=== PATIENT | female | born 1935 | race Caucasian/White ===

== ENCOUNTER 2020-09-24 12:10 | Day surgery (SDC) | payer MEDICARE ==
[~2020-09-24] VITALS: Ht 149.9 cm; Wt 85.8 kg
[~2020-09-24 12:10] MED LIST: ALBU90OI INH; ALBU90OI6 INH; CLON.2 PO; DILT30 PO; DOXA1 PO; FLUSAL2505 INH; Furosemide20 MG PO; GABA300 PO; HYDMOR2 PO; IBUP600 PO; LEVSOD50 PO; LEVSOD75 PO; LISI20 PO; MONT10T PO; OMEP20ER PO; ONDA4ODT MM; Omeprazole20 M1 PO; PROAIR RESPICL90 MCG PO
[2020-09-25 05:03] LABS: BASOPHILS ABSOLUTE AUTO 0.02 K/mm3 (0.00-0.23); BASOPHILS PERCENT AUTO 0 % (0-2); EOSINOPHILS PERCENT AUTO 0 % (0-6); Hemoglobin 11.2 g/dL (11.5-16.0); IMMATURE GRAN ABSOLUTE AUTO 0.05 K/mm3 (0.00-0.10); IMMATURE GRAN PERCENT AUTO 0 % (0-1); LYMPHOCYTES ABSOLUTE AUTO 1.21 K/mm3 (0.84-5.20); LYMPHOCYTES PERCENT AUTO 9 % (21-46); MONOCYTES ABSOLUTE AUTO 0.43 K/mm3 (0.16-1.47); MONOCYTES PERCENT AUTO 3 % (4-13); Mean Corpuscular HGB 28.9 pg (26.0-34.0); Mean Corpuscular Volume 90 fL (80-100); Mean Platelet Volume 10.4 fL (9.1-12.4); NEUTROPHILS ABSOLUTE AUTO 11.83 K/mm3 (1.96-9.15); NEUTROPHILS PERCENT AUTO 87 % (41-73); Platelet Count 274 K/mm3 (150-400); RDW Coefficient Variation 13.4 % (11.7-14.2); RDW Standard Deviation 44.4 fL (35.1-46.3); Red Blood Cell Count 3.87 M/mm3 (3.80-5.20); White Blood Cell Count 13.54 K/mm3 (4.00-11.30)
--- NOTE | 2020-09-25 05:09 | NUR ---
SHIFT SUMMARY POD 1 RT TKA [id number], PT HAS BEEN PAINFUL DURING SHIFT, PO DILAUDID GIVEN ALONG WITH SCHEDULED. PAIN IMPROVING DURING SHIFT. PT ABLE TO TRANSFER TO [facility] WITH LESS ASSISSTANCE EACH TIME SHE GETS UP. DENIES NAUSEA DURING SHIFT. TOLERATING PO WELL, STATES APPETITE IS RETURNING. MJ WRAP CDI AND POLAR ANUEL ON. PLAN IS TO HAVE PT WORK WITH THERAPY AND DISCHARGE DURING THE DAY.
[2020-09-25 05:39] LABS: Anion Gap 7 mmol/L (6-16); Blood Urea Nitrogen 20 mg/dL (8-24); Bun/Creatinine Ratio 30.1 (12.0-20.0); CO2, Blood 26 mmol/L (21-32); Calcium, Blood 8.6 mg/dL (8.5-10.1); Chloride, Blood 103 mmol/L (98-108); Creatinine, Blood 0.66 mg/dL (0.40-1.00); Glomerular Filtration Rate >60 (60-); Glucose, Blood 176 mg/dL (70-99); Magnesium, Blood 1.9 mg/dL (1.6-2.4); Sodium, Blood 136 mmol/L (136-145)
[2020-09-25] MEDS ORDERED: ENOX40I SC ×2 (12:44)
[2020-09-25] MEDS ORDERED: ASPI81CH PO ×2 (12:45)
[2020-09-25] MEDS ORDERED: HYDMOR2 PO ×2 (12:46)
[2020-09-25] MEDS ORDERED: AMOCLA875 PO ×2 (12:48)
--- NOTE | 2020-09-25 14:19 | NUR ---
09/25/20 1419 Mercedes Barrios VERIFICATIONS: EDIT CHART.
--- NOTE | 2020-09-25 14:55 | NUR ---
PATIENT D/C'D HOME WITH DAUGHTER AT THIS TIME. PATIENT STATES PAIN CONTROLLED WITH PO PAIN MED. TOLERATING PO. VOIDING. PATIENT STATES UNDERSTANDING OF MEDS, ACTIVITY, WOUND CARE, OP PT, F/U APPT, ETC. NO ACUTE CHANGES OR C/O.
--- NOTE | 2020-09-25 16:12 | NUR ---
VSS. TOLERATING PO. DENIES PAIN. VISITING WITH DAUGHTER. CONT TO MONITOR.
[2020-09-26] MEDS ORDERED: HYDMOR2 PO (09:28)
== END 2020-09-25 14:54 | disposition home or self-care (01) ==
LOC: ORSCMMR 12:10 → SURS 17:39 → ORSCMMR 09-25 14:54
PROVIDERS: Orthopaedic Surgery
PROC: 0SRC0J9 Replacement of Right Knee Joint with Synthetic Substitute, Cemented, Open Approach (ICD-10-PCS; principal; 2020-09-24 14:30)
PROC: 8E0YXBZ Computer Assisted Procedure of Lower Extremity (ICD-10-PCS; principal; 2020-09-24 14:30)
DX: M17.11 Unilateral primary osteoarthritis, right knee (principal); I10 Essential (primary) hypertension; J45.909 Unspecified asthma, uncomplicated; K21.9 Gastro-esophageal reflux disease without esophagitis; E03.9 Hypothyroidism, unspecified; E11.9 Type 2 diabetes mellitus without complications; E78.00 Pure hypercholesterolemia, unspecified; E66.01 Morbid (severe) obesity due to excess calories; Z68.38 Body mass index [BMI] 38.0-38.9, adult; Z79.84 Long term (current) use of oral hypoglycemic drugs; Z79.899 Other long term (current) drug therapy
CPT/HCPCS: 36415; 73560-RT; 80048; 83735; 85025; 88300; 97110; 97116; 97162; 97530; A9270; C1713; C1776; J0171; J0360; J0690; J0735; J1170; J1650; J1885; J2250; J2550; J2704; J2795; J3010; J3370; J7120

== ENCOUNTER 2020-09-26 06:51 | Emergency (ER) | payer MEDICARE ==
[~2020-09-26] VITALS: Ht 149.9 cm; Wt 83.9 kg
[~2020-09-26 06:51] MED LIST changes: +AMOCLA875 PO; +ASPI81CH PO; +ENOX40I SC
[2020-09-26] MEDS ORDERED: HYDMOR2 PO (09:28)
[2020-09-26 10:25] LABS: BASOPHILS ABSOLUTE AUTO 0.03 K/mm3 (0.00-0.23); BASOPHILS PERCENT AUTO 0 % (0-2); EOSINOPHILS ABSOLUTE AUTO 0.01 K/mm3 (0.00-0.68); EOSINOPHILS PERCENT AUTO 0 % (0-6); Hematocrit 34.3 % (33.0-51.0); Hemoglobin 11.1 g/dL (11.5-16.0); IMMATURE GRAN ABSOLUTE AUTO 0.08 K/mm3 (0.00-0.10); IMMATURE GRAN PERCENT AUTO 1 % (0-1); LYMPHOCYTES PERCENT AUTO 15 % (21-46); MONOCYTES ABSOLUTE AUTO 0.92 K/mm3 (0.16-1.47); MONOCYTES PERCENT AUTO 10 % (4-13); Mean Corpuscular HGB 29.3 pg (26.0-34.0); Mean Corpuscular HGB Conc 32.4 g/dL (31.5-36.5); Mean Corpuscular Volume 91 fL (80-100); Mean Platelet Volume 10.4 fL (9.1-12.4); NEUTROPHILS ABSOLUTE AUTO 7.04 K/mm3 (1.96-9.15); NEUTROPHILS PERCENT AUTO 74 % (41-73); Platelet Count 236 K/mm3 (150-400); RDW Coefficient Variation 13.3 % (11.7-14.2); RDW Standard Deviation 44.3 fL (35.1-46.3); Red Blood Cell Count 3.79 M/mm3 (3.80-5.20); White Blood Cell Count 9.48 K/mm3 (4.00-11.30)
== END 2020-09-26 10:37 | disposition home or self-care (01) ==
LOC: ER 06:51
PROVIDERS: Emergency Medicine
DX: G89.18 Other acute postprocedural pain (principal); L53.9 Erythematous condition, unspecified; Z96.641 Presence of right artificial hip joint; Z79.82 Long term (current) use of aspirin; Z79.899 Other long term (current) drug therapy; Z88.5 Allergy status to narcotic agent; Z88.2 Allergy status to sulfonamides; Z88.8 Allergy status to other drugs, medicaments and biological substances; Z88.1 Allergy status to other antibiotic agents
CPT/HCPCS: 36415; 85025; 96374; 96375; 99283-25; J1170; J2405

== ENCOUNTER 2024-02-11 14:04 | Emergency (ER) | payer MEDICARE ==
[~2024-02-11] VITALS: Ht 167.6 cm; Wt 81.7 kg
[2024-02-11 14:28] LABS: Source, Urine Clean Catch
[2024-02-11 14:36] LABS: Appearance, Urine Clear (Clear); Bilirubin, Urine Neg (Neg); Blood, Urine Neg (Neg); Color, Urine Yellow (P-Yellow); Glucose Qualitative, Urine Neg (Neg); Ketones, Urine 2+ (Neg); Leukocyte Esterase, Urine Neg (Neg); Nitrite, Urine Pos (Neg); Protein, Urine 2+ (Neg); Specific Gravity, Urine 1.015 (1.003-1.022); Urobilinogen, Urine 1+ (Normal)
[2024-02-11] MEDS ORDERED: METF500 PO (14:44)
[2024-02-11] MEDS ORDERED: Prinivil10 MG PO (14:44)
[2024-02-11] MEDS ORDERED: ATOR20 PO (14:45)
[2024-02-11] MEDS ORDERED: MELO7.5 PO (14:45)
[2024-02-11 14:52] LABS: BASOPHILS ABSOLUTE AUTO 0.04 K/mm3 (0.00-0.23); BASOPHILS PERCENT AUTO 0 % (0-2); EOSINOPHILS ABSOLUTE AUTO 0.15 K/mm3 (0.00-0.68); EOSINOPHILS PERCENT AUTO 2 % (0-6); Hematocrit 41.1 % (33.0-51.0); Hemoglobin 13.7 g/dL (11.5-16.0); IMMATURE GRAN ABSOLUTE AUTO 0.02 K/mm3 (0.00-0.10); IMMATURE GRAN PERCENT AUTO 0 % (0-1); LYMPHOCYTES ABSOLUTE AUTO 2.86 K/mm3 (0.84-5.20); LYMPHOCYTES PERCENT AUTO 31 % (21-46); MONOCYTES ABSOLUTE AUTO 0.67 K/mm3 (0.16-1.47); MONOCYTES PERCENT AUTO 7 % (4-13); Mean Corpuscular HGB Conc 33.3 g/dL (31.5-36.5); Mean Corpuscular Volume 90 fL (80-100); Mean Platelet Volume 10.4 fL (9.1-12.4); NEUTROPHILS ABSOLUTE AUTO 5.36 K/mm3 (1.96-9.15); NEUTROPHILS PERCENT AUTO 59 % (41-73); Platelet Count 303 K/mm3 (150-400); RDW Coefficient Variation 12.9 % (11.7-14.2); RDW Standard Deviation 42.5 fL (35.1-46.3); Red Blood Cell Count 4.56 M/mm3 (3.80-5.20)
[2024-02-11 14:58] LABS: Bacteria Few /hpf; Red Blood Cells, Urine Not Seen /hpf (0-2); Squamous Epithelial Cells Not Seen /hpf (Few); White Blood Cells, Urine 0-2 /hpf (0-5)
[2024-02-11 15:13] LABS: Albumin/Globulin Ratio 1.2 (0.8-1.8); Bilirubin, Total 0.7 mg/dL (0.1-1.0); Bun/Creatinine Ratio 19.7 (12.0-20.0); Calcium, Blood 9.5 mg/dL (8.5-10.1); Creatinine, Blood 0.56 mg/dL (0.40-1.00); Globulin, Blood 3.3 g/dL (2.2-4.0); Potassium, Blood 3.5 mmol/L (3.5-5.5); Total Protein, Blood 7.3 g/dL (6.4-8.2)
[2024-02-11] MEDS ORDERED: Pyridium100 MG PO (15:43)
[2024-02-11] MEDS ORDERED: Macrobid 100 M100 MG PO (15:43)
[2024-02-11 16:00] VITALS: BP 199/60
== END 2024-02-11 16:15 | disposition home or self-care (01) ==
LOC: ER 14:04
PROVIDERS: Student in an Organized Health Care Education/Training Program
DX: R30.0 Dysuria (principal); I10 Essential (primary) hypertension; E03.9 Hypothyroidism, unspecified; Z87.891 Personal history of nicotine dependence; Z79.899 Other long term (current) drug therapy; Z79.84 Long term (current) use of oral hypoglycemic drugs
CPT/HCPCS: 80053; 81001; 85025; 87086; 99283